=== PATIENT | male | born 1985 | race Caucasian/White ===

== ENCOUNTER → 2016-03-27 | Outpatient (CLI) | payer OTHER ==
--- NOTE | 2016-03-27 15:05 | Diagnostic Imaging Report ---
PROCEDURE: CT head without contrast. TECHNIQUE: Multiple contiguous axial images were obtained through the brain without the use of intravenous contrast. INDICATION: Chronic headache. FINDINGS: There is no intracranial hemorrhage, edema or mass effect. The brain parenchyma demonstrates preserved mercado and white matter differentiation. No hydrocephalus. No extra-axial fluid collections seen. The calvarium, orbits and paranasal sinuses visualized portions appear unremarkable. IMPRESSION: Unremarkable exam. Dictated by: Dictated on workstation # [id number]
== END ==
LOC: RAD 12:59
PROVIDERS: ATTEND Nurse Practitioner
DX: R51 Headache (principal)
CPT/HCPCS: 70450

== ENCOUNTER → 2020-12-22 | Outpatient (CLI) | payer BC, OTHER ==
[~2020-12-22] MED LIST: CATHETER FLUSH 10 ML SYR IV PRN; DIATRIZOATE MEGLUM/SODIUM 37% 120 ML (GASTROGRAFIN) PO ONE; HOLD METFORMIN - RECEIVED CONTRAST 20 ML VIAL IV SCH; IOHEXOL 350 MG/ML 100 ML (OMNIPAQUE 350) VIAL IV ONE; NS 100 ML (IVPB) BAG IV ONE
--- NOTE | 2020-12-22 11:05 | Diagnostic Imaging Report ---
PROCEDURE: CT abdomen with contrast only. TECHNIQUE: Multiple contiguous axial images were obtained through the abdomen after the administration of intravenous contrast. Auto Exposure Controls were utilized during the CT exam to meet ALARA standards for radiation dose reduction. INDICATION: Chronic diarrhea, abdominal pain COMPARISON: None available. FINDINGS: Mild left basilar scarring and/or atelectasis. A 6.6 x 6.0 x 4.6 cm hyperenhancing mass lesion is identified within the left hepatic lobe. This becomes isodense on delayed imaging. The liver is otherwise unremarkable. The spleen is unremarkable. The adrenal glands are unremarkable. The pancreas is unremarkable. The gallbladder is unremarkable. The kidneys are unremarkable. Retroaortic left renal vein. No aneurysmal dilatation of the abdominal aorta. Colonic diverticulosis is identified. However, mild mural thickening and mild fat stranding is identified adjacent to some diverticula involving the descending colon, best seen on series 3, image 49 and series 5, image 169. Additionally, a loop of small bowel within the midline abdomen demonstrates mural thickening with minimal adjacent inflammatory stranding, best seen on series 3, image 52. No evidence of bowel obstruction within the fxymk-ot-piln. No pathologically enlarged lymph nodes. No free air. No significant free fluid. Scattered osseous degenerative changes without acute osseous abnormality. IMPRESSION: Mural thickening with associated adjacent inflammatory stranding associated with the mid descending colon as well as a loop of small bowel within the left abdomen. This is nonspecific and could relate to a nonspecific coloenteritis from an underlying infectious or inflammatory process. Crohn's disease could be considered. Alternatively, this could relate to acute diverticulitis with superimposed enteritis. There is no evidence of bowel obstruction or abscess formation. Large hyperenhancing lesion within the left hepatic lobe. This is nonspecific. This could relate to a hyperenhancing hemangioma, though hepatic adenoma or additional mass lesion are additional considerations. If no prior imaging is available to demonstrate multiple years of stability for this mass lesion, then a follow-up CT or MRI of the abdomen with and without contrast using hepatic mass protocol would be recommended after clearance of the contrast administered for this examination, after 2-3 days. Dictated by: Dictated on workstation # [id number]
== END ==
LOC: RAD FS 09:49
PROVIDERS: ATTEND Nurse Practitioner Family
DX: K52.9 Noninfective gastroenteritis and colitis, unspecified (principal); D72.829 Elevated white blood cell count, unspecified
CPT/HCPCS: 74160

== ENCOUNTER → 2021-01-03 | Outpatient (CLI) | payer BC ==
[~2021-01-03] MED LIST changes: -CATHETER FLUSH 10 ML SYR IV PRN; -DIATRIZOATE MEGLUM/SODIUM 37% 120 ML (GASTROGRAFIN) PO ONE; +GADOTERATE 0.5 MMOL/ML (CLARISCAN) 20 ML VIAL IV ONE; -HOLD METFORMIN - RECEIVED CONTRAST 20 ML VIAL IV SCH; -IOHEXOL 350 MG/ML 100 ML (OMNIPAQUE 350) VIAL IV ONE; -NS 100 ML (IVPB) BAG IV ONE
--- NOTE | 2021-01-03 17:06 | Diagnostic Imaging Report ---
EXAMINATION: MRI of the abdomen with and without contrast. TECHNIQUE: Multiplanar, multisequence MR images of the abdomen were obtained with and without intravenous contrast. HISTORY: Liver mass COMPARISON: None available. FINDINGS: The liver is normal size. There is no hepatic steatosis. The liver lesion seen on CT is isointense on T1 and T2-weighted imaging. It enhances to the same degree as normal liver parenchyma. It measures 6.5 x 6.0 cm. No other liver lesions are seen. No surface nodularity. The gallbladder is normal. There is no biliary ductal dilation. Pancreas is normal. The pancreatic duct is normal. Spleen is normal. Adrenal glands are normal. The kidneys are normal. There is no hydronephrosis. Visualized bowel is normal. No lymphadenopathy is seen. Lung bases are clear. No osseus lesions are seen. IMPRESSION: 1. The liver lesion seen on CT has imaging characteristics most suggestive of focal nodular hyperplasia. A repeat exam in 6-12 weeks with [facility] is recommended for confirmation. Dictated by: Dictated on workstation # [id number]
== END ==
LOC: RAD 14:45
PROVIDERS: ATTEND Nurse Practitioner Family
DX: R16.0 Hepatomegaly, not elsewhere classified (principal)
CPT/HCPCS: 74183

== ENCOUNTER → 2021-06-14 | Outpatient (CLI) | payer BC ==
--- NOTE | 2021-06-14 11:56 | Diagnostic Imaging Report ---
INDICATION: Low back pain. Time of Exam: 10:40 AM Frontal and lateral views including flexion and extension views were obtained. Neutral view does show fairly normal curvature and alignment of the lumbar spine. Vertebral body heights are maintained. No acute compression fracture seen. There is some generalized spondylosis with variable disc space narrowing present. Flexion-extension views show no definite abnormal motion. No subluxation is seen. IMPRESSION: Generalized lumbar spondylosis. No acute bony abnormality is seen. No motion is identified during flexion or extension maneuvers. Dictated by: Dictated on workstation # [id number]
== END ==
LOC: RAD 10:12
PROVIDERS: ATTEND Nurse Practitioner Family
DX: M47.816 Spondylosis without myelopathy or radiculopathy, lumbar region (principal)
CPT/HCPCS: 72110

== ENCOUNTER → 2021-06-26 | Outpatient (CLI) | payer BC ==
--- NOTE | 2021-06-26 11:32 | Diagnostic Imaging Report ---
PROCEDURE: MRI lumbar spine. TECHNIQUE: Multiplanar, multisequence MRI of the lumbar spine was performed without contrast. INDICATION: Low back pain, history of sacral dislocation. EXAMINATION: MRI lumbar spine without contrast 06/26/21 FINDINGS: There is normal height and alignment of the vertebral bodies with the tip of the conus unremarkable in appearance and location. L1-L2: There is intervertebral space narrowing and disc desiccation. There is a prominent right paracentral disc extrusion which extends into the right neural foramen. There is no significant central stenosis. There is minimal bilateral facet hypertrophy. The extruded disc material causes moderate central stenosis on the right with question encroachment of the exiting right nerve root correlate with symptoms. The left neural foramen is patent. L2-L3: There is intervertebral space narrowing with a right paracentral disc protrusion containing an annular tear. There is bilateral facet hypertrophy with no central stenosis. There is mild right neural foraminal stenosis. L3-L4: There is bilateral facet and ligamentous flavum hypertrophy. There is no central stenosis. The neural foramina appear patent. L4-L5: There is disc desiccation with a mild broad-based bulging disc. There is bilateral facet omentum flavum hypertrophy. There is no central stenosis. There is moderate bilateral neural foraminal narrowing. L5-S1: There is intervertebral disc space narrowing, disc desiccation and a broad-based bulging disc. There is minimal bilateral facet hypertrophy. There is no central stenosis. There is moderate to severe left and moderate right neural foraminal stenosis. At this level there are endplate changes consistent with Modic type I findings. Minimal T2 hyperintensity within the disc space at this level most likely reactive and degenerative in nature. Exclusion of an infectious etiology based on patient's symptoms recommended. The visualized intra-abdominal structures unremarkable. IMPRESSION: 1. Multilevel diffuse degenerative disease with a rather prominent right paracentral disc extrusion at L1-L2 possible encroaching upon the right exiting nerve root with narrowing of the right neural foramen present. 2. Edema along the endplates at the L5-S1 level with mild adjacent edema in the intervertebral space. These are most likely degenerative changes. However clinical exclusion of any symptoms that would suggest infection recommended which is felt to be less likely. Dictated by: Dictated on workstation # [id number]
== END ==
LOC: RAD 10:15
PROVIDERS: ATTEND Nurse Practitioner Family
DX: M47.816 Spondylosis without myelopathy or radiculopathy, lumbar region (principal); M51.26 Other intervertebral disc displacement, lumbar region; M48.061 Spinal stenosis, lumbar region without neurogenic claudication
CPT/HCPCS: 72148

== ENCOUNTER → 2021-07-21 | Outpatient (CLI) | payer BC ==
--- NOTE | 2021-07-21 08:53 | Diagnostic Imaging Report ---
CLINICAL INDICATION: Patient with tailbone pain. Patient states his doctor thinks his tailbone is pointing in wrong direction. EXAM: X-ray of the sacrum and coccyx, 3 views. COMPARISON: X-ray of the lumbar spine dated 06/14/2021. FINDINGS: There is no acute fracture or dislocation involving the visualized portions of the pelvis, sacrum, or coccyx. There is slightly hypertrophic bony changes involving the mid coccyx region. Otherwise, the angulation of the coccyx is not significantly abnormal. There is at least moderate loss of disk space height at the L5-S1 level again seen. There are small spurs involving the right femoral acetabular region and right acetabular region. There is mild sclerosis of the sacroiliac joints. IMPRESSION: 1: There is no acute fracture or dislocation. 2: There is slight bony hypertrophic changes posteriorly involving the mid coccyx region. Otherwise, the configuration of the coccyx is not significantly abnormal. Dictated by: Dictated on workstation # [id number]
--- NOTE | 2021-07-21 11:04 | Diagnostic Imaging Report ---
PROCEDURE: MRI pelvis without contrast. TECHNIQUE: Multiplanar, multisequence MRI of the pelvis was performed without contrast. INDICATION: Recent MRI for spinal pain was performed showing abnormalities across the L5-S1 level. The patient is complaining of sacrococcygeal pain at this point. COMPARISON: Exam is correlated with sacrococcygeal radiographs earlier as well as correlated with overlapped sections obtained during lumbar MRI 06/26/2021. FINDINGS: Sacroiliac joints showed no ankylosis, erosion, or adjacent marrow edema. No sacroiliac separation or diastasis. A bulging disc material at the L5-S1 level with edematous Modic type I changes across the L5-S1 articular endplates is unchanged. Sacrococcygeal curvature and alignment is unremarkable. There is no evidence for fracture. The presacral space appeared normal. No pelvic intra- or extra-peritoneal hemorrhage or free fluid. There were no findings of diverticulitis. No pelvic ascites, abscess, hematoma, or acute fluid collection. Prostate and seminal vesicles are normal. There is no sidewall or ilioinguinal lymphadenopathy. The pelvic and anterior abdominal wall are intact. Gluteal musculature is symmetric. No symphyseal diastasis. The superior and inferior pubic rami are intact. There is no inguinal hernia, mass, or fluid collection. IMPRESSION: Degenerative changes across the L5-S1 articulation, stable from prior MR. Otherwise, normal pelvic MRI, attention sacrococcygeal levels. Dictated by: Dictated on workstation # [id number]
== END ==
LOC: RAD 08:45
PROVIDERS: ATTEND Neurological Surgery
DX: M47.817 Spondylosis without myelopathy or radiculopathy, lumbosacral region (principal)
CPT/HCPCS: 72195; 72220

== ENCOUNTER → 2022-02-16 | Outpatient (CLI) | payer BC ==
--- NOTE | 2022-02-16 11:55 | Diagnostic Imaging Report ---
INDICATION: Fall with right shoulder pain and limited range of motion. TIME OF EXAM: 8:55 a.m. FINDINGS: Three views of the right shoulder demonstrate a suspicious lucency extending through the glenoid. There is also questionable cortical interruption, and a fracture cannot be entirely excluded. Proximal humerus is intact. Acromioclavicular alignment is normal. Acromiohumeral space is normal. IMPRESSION: There is a lucency extending through the inferior third of the glenoid, suspicious for a fracture. A dedicated CT of the right shoulder would be useful for further evaluation. Dictated by: Dictated on workstation # [id number]
== END ==
LOC: RAD 08:31
PROVIDERS: ATTEND Nurse Practitioner Family
DX: M25.511 Pain in right shoulder (principal); W19.XXXA Unspecified fall, initial encounter
CPT/HCPCS: 73030

== ENCOUNTER → 2022-02-20 | Outpatient (CLI) | payer BC ==
--- NOTE | 2022-02-20 17:12 | Diagnostic Imaging Report ---
PROCEDURE: CT right upper extremity without contrast. TECHNIQUE: Multiple contiguous axial images were obtained through the right upper extremity without the use of intravenous contrast. Sagittal and coronal reformations were then performed. Auto Exposure Controls were utilized during the CT exam to meet ALARA standards for radiation dose reduction. INDICATION: Shoulder pain. COMPARISON: Radiographs of 02/16/2022. FINDINGS: There is a fracture in the inferior one-third of the glenoid with the osteoarticular fragment measuring approximately 1.6 x 0.9 cm. There is no depression or displacement of the fragment. No additional fracture about the shoulder. Specifically, there is no Hill-Sachs deformity. Os acromiale is present. Visualized aspects of the right lung are clear. Rotator cuff is normal in bulk. IMPRESSION: CT confirms the presence of a nondepressed intra-articular fracture involving the inferior one-third of the glenoid. Dictated by: Dictated on workstation # [id number]
== END ==
LOC: RAD FS 12:09
PROVIDERS: ATTEND Nurse Practitioner Family
DX: S42.141A Displaced fracture of glenoid cavity of scapula, right shoulder, initial encounter for closed fracture (principal); X58.XXXA Exposure to other specified factors, initial encounter
CPT/HCPCS: 73200

== ENCOUNTER → 2022-02-27 | Outpatient (CLI) | payer BC | LOC: ORTHO 13:52 | PROVIDERS: ATTEND Orthopaedic Surgery | DX: S42.141A Displaced fracture of glenoid cavity of scapula, right shoulder, initial encounter for closed fracture (principal); I10 Essential (primary) hypertension; X58.XXXA Exposure to other specified factors, initial encounter | CPT/HCPCS: 99203 ==

== ENCOUNTER → 2022-05-29 | Outpatient (CLI) | payer BC | LOC: ORTHO 13:27 | PROVIDERS: ATTEND Orthopaedic Surgery | DX: M25.511 Pain in right shoulder (principal); I10 Essential (primary) hypertension; Z87.81 Personal history of (healed) traumatic fracture | CPT/HCPCS: 99213 ==

== ENCOUNTER → 2022-06-11 | Outpatient (CLI) | payer BC ==
[~2022-06-11] VITALS: Ht 188 cm; Wt 97.7 kg
[~2022-06-11] MED LIST changes: +GADOTERATE 0.5 MMOL/ML (CLARISCAN) 15 ML VIAL IV ONE; -GADOTERATE 0.5 MMOL/ML (CLARISCAN) 20 ML VIAL IV ONE; +IOHEXOL 240 MGI/ML 50 ML (OMNIPAQUE) VIAL IV ONE; +LIDOCAINE 1% INJ 10 ML VIAL INJ ONE; +LIDOCAINE 1% INJ 10 ML VIAL ONE
--- NOTE | 2022-06-11 14:51 | Diagnostic Imaging Report ---
INDICATION: Right shoulder injury. Patient brought to the procedure room placed on table in the supine position. Right shoulder was prepped and draped in usual sterile fashion. Small amount 1% lidocaine was utilized for local anesthesia. 25-gauge needle was advanced into the right shoulder in place with tip at the rotator interval. A 15 mm solution of iodinated contrast, normal saline and gadolinium was injected under fluoroscopic observation. Total of 10 seconds of fluoroscopic time was utilized. Needle was withdrawn, hemostasis was obtained. Patient tolerated the procedure well and was sent to MRI in satisfactory condition. IMPRESSION: Successful right shoulder injection of gadolinium contrast solution, using fluoroscopy. Dictated by: Dictated on workstation # [id number]
--- NOTE | 2022-06-11 19:39 | Diagnostic Imaging Report ---
EXAMINATION: Magnetic resonance imaging of the right shoulder with intra-articular contrast. DATE: June 11, 2022. COMPARISON: Right shoulder arthrogram June 11, 2022. HISTORY: 36-year-old male, right shoulder pain. Fall in January 2022. TECHNIQUE: Magnetic Resonance Imaging sequences were performed of the shoulder following the intra-articular administration of contrast. FINDINGS: ROTATOR CUFF, LIGAMENTS, TENDONS, AND MUSCLES: There is a 6 mm wide approximately 25-33% partial thickness interstitial tear of supraspinatus with the tear measuring 6 mm in medial to lateral extent as measured on coronal STIR sequence image 16. The infraspinatus, teres minor, and subscapularis tendons are intact. There is contrast in portions of the subscapularis muscle. Additional rotator cuff signal is unremarkable. There is normal rotator cuff muscle bulk. LONG HEAD OF BICEPS: The biceps labral attachment and long head of the biceps tendon is intact. The long head of the biceps tendon is normally positioned within the bicipital groove. GLENOHUMERAL JOINT: The humeral head is well positioned relative to the glenoid. The labrum is intact. There is no identified paralabral cyst. The articular cartilage is grossly intact. There is lack of visualization of the humeral attachment of the posterior band of the inferior glenohumeral ligament complex which is likely torn with contrast extravasation below the level of the axillary pouch. The anterior band of the inferior glenohumeral ligament complex appears intact. ACROMIOCLAVICULAR JOINT: The acromioclavicular joint is normally aligned. The coracoclavicular and coracoacromial ligaments are intact. There are no degenerative changes of the acromioclavicular joint. BONE: There is an os acromiale. There is no evidence of abnormal motion. There is no Hill-Sachs deformity. There is no acute fracture, bone contusion, or evidence of osteonecrosis. BURSAE AND SOFT TISSUES: The bursae and soft tissue surrounding the shoulder are unremarkable. IMPRESSION: 1. 6 mm wide approximately 25-33% partial thickness interstitial tear of supraspinatus. The additional rotator cuff tendons are intact. 2. Intact acromioclavicular joint. Os acromiale without evidence of abnormal motion. 3. Tear of the humeral attachment side of the posterior band of the inferior glenohumeral ligament. The anterior band is intact. 4. No identified labral tear. Intact articular cartilage of the glenohumeral joint. 5. No acute fracture or bone contusion. Dictated by: Dictated on workstation # [id number]
== END ==
LOC: RAD 14:15
PROVIDERS: ATTEND Orthopaedic Surgery
DX: S43.491A Other sprain of right shoulder joint, initial encounter (principal); M75.111 Incomplete rotator cuff tear or rupture of right shoulder, not specified as traumatic; W19.XXXA Unspecified fall, initial encounter
CPT/HCPCS: 23350; 73040; 73222

== ENCOUNTER → 2022-12-07 | Outpatient (CLI) | payer BC ==
[~2022-12-07] MED LIST changes: +CATHETER FLUSH 10 ML SYR IVP PRN; -GADOTERATE 0.5 MMOL/ML (CLARISCAN) 15 ML VIAL IV ONE; -IOHEXOL 240 MGI/ML 50 ML (OMNIPAQUE) VIAL IV ONE; -LIDOCAINE 1% INJ 10 ML VIAL INJ ONE; -LIDOCAINE 1% INJ 10 ML VIAL ONE
--- NOTE | 2022-12-07 10:56 | Diagnostic Imaging Report ---
PROCEDURE: US Gallbladder. TECHNIQUE: Multiple real-time grayscale images were obtained over the right upper quadrant in various projections. INDICATION: Right upper quadrant abdominal pain. Nausea and vomiting. COMPARISON: None FINDINGS: A 6.1 x 5.3 m mass is identified centrally within the liver. It is hypoechoic compared to background hepatic parenchyma. This has a nonspecific appearance on this exam, but has been evaluated on previous MRI dated 01/03/2021. No intra or extrahepatic biliary dilatation is present. The common bile duct is not dilated and measures 5 to 6 mm. Gallbladder is visualized. Single echogenic gallstone is identified and measures 9 mm. There is, however no gallbladder wall thickening nor pericholecystic free fluid. The visualized portions of the head and proximal body of the pancreas are within normal limits. The distal body and tail of the pancreas are not visualized due to overlying bowel gas. There is no ascites. The right kidney measures approximately 10.5 cm in length and has a normal appearance. The visualized portions of the IVC and aorta are normal. IMPRESSION: 1. Cholelithiasis, but no sonographic evidence of acute cholecystitis. 2. Large mass located centrally within the liver. Again, this has been evaluated on previous MRI dated 01/03/2021. Please refer to that report for differential and recommendations. Dictated by: Dictated on workstation # [id number]
--- NOTE | 2022-12-07 11:48 | Diagnostic Imaging Report ---
INDICATION: Right upper quadrant abdominal pain. TECHNIQUE: Patient was administered 5.3 mCi technetium-99m Choletec intravenously, and imaging over the abdomen was performed. At 45 minutes, patient ingested 8 ounces of Ensure, and gallbladder ejection fraction was calculated. FINDINGS: There is homogeneous uptake of activity by the liver with prompt excretion of activity into the gallbladder and common duct. There is normal passage of activity into the small bowel. Gallbladder ejection fraction is low at 16%. Normal values are 35% or greater. IMPRESSION: 1. Patent cystic duct and common bile duct. 2. Low gallbladder ejection fraction of 16%. Dictated by: Dictated on workstation # [id number]
--- NOTE | 2022-12-11 13:25 | HISTORY AND PHYSICAL ---
DATE OF SCHEDULED PROCEDURE: 12/20/2022. ATTENDING PRIMARY CARE PHYSICIAN: Blossom Mathews APRN INDICATIONS: This is a 37-year-old male who was referred over to us initially for worsening heartburn and reflux. He reports he has had issues with heartburn and reflux for the past 5-10 years and reports that this has recently become more worse. He reports that he has been taking bzza-dhd-zhwrmdw Nexium for quite a while and reports that he did switch to Pepcid, however, reports that he did have some side effects from the medication and did stop this and went back to the Nexium. He does report that he does get occasional episodes of nausea as well as episodes of regurgitation at night. He also reported a globulus sensation in his throat and feels like it is difficult to swallow, but reports that this does not occur frequently. He denies any hematemesis or any coffee-ground emesis. He reports that acidic types of foods make the symptoms worse. He reports he has never had an upper endoscopy before. He reports he has tried mijd-lpc-aqzqqil medications such as Tums in the past, which have not helped. He also reports that he has intentionally been trying to lose weight and has lost approximately 30 pounds. On 10/22/2022, he underwent an EGD with biopsy and balloon dilatation. Findings are reflux esophagitis Burleson grade B and C with a mild distal esophageal stricture, moderate to large size hiatal hernia approximately 4 cm in size, moderate gastritis with no distal obstructions. Biopsies were negative for H. pylori as well as negative for Young's esophagus. He continued to have symptoms and did undergo a gallbladder ultrasound, in which he was found to have cholelithiasis. He also had a HIDA scan and was found to have a low ejection fraction of 16%. MEDICAL HISTORY: Hypertension, diverticulosis, obesity, gastroesophageal reflux disease. SURGICAL HISTORY: Crowley teeth. ALLERGIES: PENICILLIN. MEDICATIONS: Nexium, Wegovy, metformin 500 mg, and lisinopril 5 mg. SOCIAL HISTORY: Negative for tobacco, smoke. Negative for alcohol. FAMILY HISTORY: Mother, hypertension. Maternal grandfather, myocardial infarction and colon cancer. VITAL SIGNS: Blood pressure is 122/70. Current weight is 195.7 pounds at 6 feet 1 inch. REVIEW OF SYSTEMS: Well-nourished male in no acute distress. He is not experiencing any shortness of breath or difficulty breathing. No chest pain, palpitations or diaphoresis. He does report occasional episodes of nausea with vomiting. He denied any diarrhea or constipation as well as no red blood per rectum as well as no dark tarry stools. He does report episodes of heartburn and reflux. He does report weight loss of 30 pounds; however, this has been intentional. All other review of systems negative. PHYSICAL EXAM: CHEST: Clear. Good breath sounds bilaterally. HEART: Regular, no murmurs. EXTREMITIES: No lower extremity edema. Negative Homans sign. HEENT: No scleral icterus. No cervical lymphadenopathy. ABDOMEN: Soft, nontender, nondistended. SKIN: Warm, dry and pink. NEUROLOGIC: Awake, alert and oriented x3. ASSESSMENT AND PLAN: A 37-year-old male with a chronic calculus cholecystitis as well as biliary dyskinesia. At this time, our recommendation is to proceed with a laparoscopic cholecystectomy. The risks and benefits of the procedure as well as the procedure and home care instructions were explained to the patient. He verbalized understanding of instructions and agrees to proceed as planned. At this time, we will proceed with scheduling him for a laparoscopic cholecystectomy. Job ID: [id number] DocumentID: [id number] Dictated Date: 12/11/2022 09:42:47 [employer] Drawer Date: 12/11/2022 13:19:00 Dictated By: LEO LO APRN
== END ==
LOC: RAD 08:00
PROVIDERS: ATTEND Surgery
DX: K80.20 Calculus of gallbladder without cholecystitis without obstruction (principal); R16.0 Hepatomegaly, not elsewhere classified
CPT/HCPCS: 76705; 78227

== ENCOUNTER → 2022-12-17 | Outpatient (CLI) | payer BC ==
[~2022-12-17] VITALS: Ht 182.9 cm; Wt 88.6 kg
[~2022-12-17] MED LIST changes: -CATHETER FLUSH 10 ML SYR IVP PRN; +GINK30CA3 PO; +LISI5TAB20 PO; +LORA-1389 PO; +METF-397 PO; +MULT-974 PO; +PANT40GR PO; +SEMA2.4P SQ; +SUCR1TAB PO
== END | disposition home or self-care (01) ==
LOC: PREOP 05:35
PROVIDERS: ATTEND Surgery
DX: Z01.818 Encounter for other preprocedural examination (principal)